=== PATIENT | female | born 1955 | race Caucasian/White ===

== ENCOUNTER → 2016-05-31 | Outpatient (CLI) | payer OTHER ==
[~2016-05-31] MED LIST: MULTI VITAMINS1 TAB PO; NASONEX SPRAY17 GM NS; PREMARIN0.45 MG PO
== END ==
LOC: COL.RAD 10:20
DX: M25.511 Pain in right shoulder (principal); M19.011 Primary osteoarthritis, right shoulder
CPT/HCPCS: J3301; Q9967